=== PATIENT | female | born 1980 ===

== ENCOUNTER 2018-09-27 12:02 | Outpatient (CLI) | payer OTHER ==
[~2018-09-27] VITALS: Ht 160 cm; Wt 61.2 kg
== END 2018-09-27 12:20 | disposition home or self-care (01) ==
LOC: OFIC 805 12:02
DX: R49.0 Dysphonia (principal); K21.0 Gastro-esophageal reflux disease with esophagitis; J03.80 Acute tonsillitis due to other specified organisms